=== PATIENT | male | born 2000 | race Caucasian/White ===

== ENCOUNTER 2022-09-18 16:33 | Emergency (ER) | payer OTHER, SELFPAY ==
[2022-09-18] MEDS ORDERED: Boostrix 0.5 ML (Tdap) VIAL (>/=7 yrs of age) ONE (17:03)
[2022-09-18] MEDS ORDERED: Bacitracin 1 PK ONE (17:39)
[2022-09-18] MEDS ORDERED: Triple Antibiotic Oint 1 GM Packet ONE (17:40)
== END 2022-09-18 17:52 | disposition home or self-care (01) ==
LOC: MADERS 16:33
DX: S09.90XA Unspecified injury of head, initial encounter (principal); S80.812A Abrasion, left lower leg, initial encounter; S80.811A Abrasion, right lower leg, initial encounter; V49.9XXA Car occupant (driver) (passenger) injured in unspecified traffic accident, initial encounter; W22.11XA Striking against or struck by driver side automobile airbag, initial encounter; Z23 Encounter for immunization
CPT/HCPCS: 70450; 90471; 90715